=== PATIENT | female | born 1985 | race Caucasian/White ===

== ENCOUNTER 2016-06-10 05:35 | Emergency (ER) | payer OTHER ==
--- NOTE | 2016-06-10 10:29 | DIAGNOSTIC IMAGING REPORT ---
PROCEDURE: CT ABD/PELVIS WITH CONTRAST CLINICAL INDICATION: Perirectal pain, initial encounter TECHNIQUE: 100 ml of Isovue 300 were injected intravenously and axial images were obtained of the entire abdomen and pelvis with sagittal and coronal reformations. COMPARISON: None. FINDINGS: ABDOMEN: Lung base are clear. Heart size is normal. Liver, gallbladder, pancreas, spleen, adrenal glands and left kidney are normal. 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 Normal abdominal aorta. Nonspecific bowel gas pattern. PELVIS: There is some soft tissue fullness in the lower vagina which may be normal but there is no evidence of a perirectal abscess. 3.2 cm right ovarian cyst with small amount of free fluid the pelvis. Normal uterus and bladder. Bones are unremarkable pill IMPRESSION: 1. Soft tissue fullness in the lower vagina, probably normal. No evidence of a perirectal abscess 2. 3.2 cm right ovarian cyst with small amount of free fluid 3. Right renal hypoplasia/atrophy 4. Results discussed with Dr. Sesay. All CT scans at this facility use dose modulation, iterative reconstruction, and/or weight-based dosing when appropriate to reduce radiation dose to as low as reasonably achievable.
--- NOTE | 2016-06-10 12:51 | ED ORDER SUMMARY ---
..... Patient: BEST GONZALEZ OrderSheet [facility] VisitID: [id number] [place] [address] 30y, F Registration Date/Time: 06/10/2016 ORDER SHEET Weight: 50.8 kg (stated) Allergies: Bactrim GENERAL ORDERS: CT Abd/Pel w Cont (No) (pending) Urgent (08:32 06/10/2016 Irvin MARTINEZ) (Ack 8:39 OHledy) (9:47 OHernandez) CBC w Diff Urgent (08:42 06/10/2016 Irvin MARTINEZ) (Ack 8:44 OHernandez) (9:47 OHernandez) CMP Urgent (08:42 06/10/2016 Irvin MARTINEZ) (Ack 8:45 OHledy) (9:47 OHernandez) Urine Urgent (08:42 06/10/2016 Irvin MARTINEZ) (Ack 8:45 OHsagrarionandez) (9:47 OHernandez) - (SET UP FOR PELVIC EXAM) (12:00 06/10/2016 Swapnil MARTINEZ) (Ack 12:04 TBergley) (12:44 TBergley) -- (SECOND LITER OF NS SPORTS DRINK PLEASE) (12:43 06/10/2016 Swapnil MARTINEZ) (12:45 TBergley) Culture, Herpes (Anal) (SWAB) Urgent (13:38 06/10/2016 Swapnil MARTINEZ) MEDICATION ORDERS: Dilaudid IM 1 mg (NOW) (06:44 06/10/2016 Irvin MARTINEZ) (7:14 DBeyer R.N.) Ativan IM 1 mg (NOW) (06:45 06/10/2016 Irvin MARTINEZ) (7:14 DBeyer R.N.) Zofran ODT PO 4 mg (NOW) (06:45 06/10/2016 Irvin MARTINEZ) (7:15 DBeyer R.N.) Zovirax PO 800 mg (NOW) (12:44 06/10/2016 Swapnil MARTINEZ) (Cancelled: Duplicate Order12:47 Swapnil MARTINEZ) IV FLUIDS: IV NS : initial bolus 1000 mL (1000 mL/hr), then 500 mL/hr for X2 (NOW); Routine (08:32 06/10/2016 Irvin MARTINEZ) (8:55 Feliciano R.NJanie) Dilaudid IV 0.5 mg (NOW) (12:12 06/10/2016 Swapnil MARTINEZ) (12:21 Aubrey Taylor.NJanie) ORDER SHEET NOTES: [Electronically signed by Kristina Cruz R.N. (19:16 06/10/2016)] [Electronically signed by Rodrick Salcedo MD (12:40 06/12/2016)] [Electronically locked/signed by Kristina Cruz R.N. (19:16 06/10/2016)]
--- NOTE | 2016-06-10 12:51 | ED CLINICAL REPORT ---
Clinical Report - Physicians/Mid Levels [facility] [address] [place] [address] 06/10/2016 5:35 Patient: BEST MCCAULEY Time Seen: 06:34 Jun 10 2016. Arrived- By private vehicle. Historian- patient. HISTORY OF PRESENT ILLNESS Chief Complaint: SKIN RASH and (Rectal pain). This started 7 days ago; Ms Mccauley developed a progressively painful yaron-rectal rash. and is still present and worsening. It was gradual in onset. It is described as painful. It has been located in the perianal area. No cause has been identified. (Hurts to walk, urinate, and defecate. She can drink fluids.). Similar symptoms previously: None. Recent medical care: The patient was seen recently by a health care provider. ( Everyother day. Dr Hernandez/Jessica KELLY Yeast Rx Cream (Tues) Wed Worse No results Rx Cephalexin (Allergic and didn;t take) Vicodin, lidocaine. Valtrex was recently added to the treatment). REVIEW OF SYSTEMS No fever, chills, cough, difficulty breathing or chest pain. No abdominal pain. She has had nausea. She has had vomiting (today x 5 times, yesterday 5 times.). PAST HISTORY PCP: LETICIA Ops: None Illness: None. SOCIAL HISTORY Never smoker. ADDITIONAL NOTES The nursing notes have been reviewed. PHYSICAL EXAM Vital Signs: 06/10/2016 05:46 BP: 135/80. HR: 107. RR: 18. O2 saturation: 99%. Temp: 97.7 F. Appearance: Alert. Patient in mild distress. (Following medication). ENT: Pharynx normal. Respiratory: No respiratory distress. Breath sounds normal. Abdomen: Nontender. No organomegaly. Skin: (There is a wet, red, inflamed area surrounding the anus. The vulva is covered with Desitin. This is removed. No vesicles are seen.). LABS, X-RAYS, AND EKG Abdominal CT: PROCEDURE: CT ABD/PELVIS WITH CONTRAST CLINICAL INDICATION: Perirectal pain, initial encounter TECHNIQUE: 100 ml of Isovue 300 were injected intravenously and axial images were obtained of the entire abdomen and pelvis with sagittal and coronal reformations. COMPARISON: None. FINDINGS: ABDOMEN: Lung base are clear. Heart size is normal. Liver, gallbladder, pancreas, spleen, adrenal glands and left kidney are normal. 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 Normal abdominal aorta. Nonspecific bowel gas pattern. PELVIS: There is some soft tissue fullness in the lower vagina which may be normal but there is no evidence of a perirectal abscess. 3.2 cm right ovarian cyst with small amount of free fluid the pelvis. Normal uterus and bladder. Bones are unremarkable pill IMPRESSION: 1. Soft tissue fullness in the lower vagina, probably normal. No evidence of a perirectal abscess 2. 3.2 cm right ovarian cyst with small amount of free fluid 3. Right renal hypoplasia/atrophy 4. Results discussed with Dr. Sesay. Electronically Final signed by:Robin Negro MD 06/10/2016 10:28:45 AM. The study was interpreted by the radiologist. Laboratory Tests: Urine: (ANDERS: 06/10/2016 09:15) ( [facility] 06/10/2016 09:22) Final results Test Result Flag Units (Reference) URINE NEGATIVE CBC w Diff: (ANDERS: 06/10/2016 08:50) ( [facility] [place] 06/10/[place] 09:07) Final results Test Result Flag Units (Reference) WHITE BLOOD COUNT 7.1 K/uL (4.5-11.5) RED BLOOD COUNT 3.71 L M/uL (4.00-5.20) HEMOGLOBIN 11.4 L gm/dL (12.0-16.0) HEMATOCRIT 34.7 L % (36.0-46.0) MEAN CELL VOLUME 93 fL (80-100) MEAN CORPUSCULAR HGB 31 pg (26-34) MEAN CORPUSCULAR HGB CONC 33 g/dL (31-37) RED CELL DISTRIBUTION WIDTH 13.5 % (11.6-14.8) PLATELET COUNT 249 K/uL (150-400) NEUTROPHIL % 77.0 H % (50-75) LYMPH % 15.5 L % (25-40) MONO % 7.2 % (3-14) EOSINOPHIL % 0 % (0-4) BASOPHIL % 0.3 % (0-2) CMP: (ANDERS: 06/10/2016 08:50) ( [facility] 06/10/2016 09:26) Final results Test Result Flag Units (Reference) GLUCOSE 73 mg/dL (70-110) BUN 9 mg/dL (7-18) CREATININE 0.6 mg/dL (0.6-1.3) Estimated GFR >60 mL/min Estimated GFR- >60 mL/min Note: Persistent reduction over 3 months in eGFR<60 mL/min/1.73 m2 defines CKD. Patients with eGFR values>=60 mL/min/1.73 m2 may also have CKD if evidence ofpersistent proteinuria. Additional information may be foundat [email or web address].org. SODIUM 137 mmol/L (136-145) POTASSIUM 3.5 mmol/L (3.5-5.1) CHLORIDE 101 mmol/L (98-107) CARBON DIOXIDE 27 mmol/L (21-32) CALCIUM 8.2 L mg/dL (8.5-10.1) TOTAL PROTEIN 6.8 g/dL (6.4-8.2) ALBUMIN 3.4 g/dL (3.3-5.0) BILIRUBIN, TOTAL 0.4 mg/dL (0.0-1.0) ALKALINE PHOSPHATASE 76 U/L (46-116) AST (SGOT) 24 U/L (15-37) ALT (SGPT) 62 U/L (12-78) . PROGRESS AND PROCEDURES Course of Care: 11:08 06/10/16. Assmed care from Dr Sesay due to change of shift. He had ordered imaging and labs. Complete independent hx and PE done and documented by me./R Matias MARTINEZ 12:46 06/10/16. Pelvic - external only. CW genital herpes. Valtrex is appropriate treatment. 06/10/2016 13:21 BP: 101/50. HR: 91. RR: 18. O2 saturation: 99%. Temp: 98.2 F. 06/10/2016 12:30 BP: 101/50. HR: 80. RR: 18. O2 saturation: 98%. Pain level now: 08/11. 06/10/2016 11:30 BP: 110/56. HR: 90. RR: 18. O2 saturation: 99%. 06/10/2016 07:43 BP: 124/71. HR: 75. RR: 18. O2 saturation: 99%. 06/10/2016 05:46 BP: 135/80. HR: 107. RR: 18. O2 saturation: 99%. Temp: 97.7 F. Disposition: Discharged. CLINICAL IMPRESSION Herpes genitalis involving the vulva and perianal area. INSTRUCTIONS Do not work for seven days until better. (LOTS OF FLUIDS THIS LOOKS LIKE GENITAL HERPES CONTINUE VALTREX SEE YOU SUN OR SUNDAY IMMEDIATE RECHECK IF YOU CANNOT KEEP LIQUIDS.). Prescription Medications: Zofran 4 mg: Take 1 orally every six hours as needed for nausea/vomiting. Dispense ten (10). No refills. Substitution is permissible. Oxycodone/APAP 5 mg/325 mg: take 1-2 tablets orally every 4 hours. Dispense twenty (20). No refill. Follow-up: Follow up with your doctor in two days. Understanding of the discharge instructions verbalized. (Electronically signed by Rodrick Salcedo MD 06/12/2016 12:40)
--- NOTE | 2016-06-10 12:51 | ED ORDER SUMMARY ---
..... Patient: BEST GONZALEZ OrderSheet [facility] VisitID: [id number] [place] [address] 30y, F Registration Date/Time: 06/10/2016 ORDER SHEET Weight: 50.8 kg (stated) Allergies: Bactrim GENERAL ORDERS: CT Abd/Pel w Cont (No) (pending) Urgent (08:32 06/10/2016 Irvin MARTINEZ) (Ack 8:39 OHledy) (9:47 OHernandez) CBC w Diff Urgent (08:42 06/10/2016 Irvin MARTINEZ) (Ack 8:44 OHernandez) (9:47 OHernandez) CMP Urgent (08:42 06/10/2016 Irvin MARTINEZ) (Ack 8:45 OHledy) (9:47 OHernandez) Urine Urgent (08:42 06/10/2016 Irvin MARTINEZ) (Ack 8:45 OHsagrarionandez) (9:47 OHernandez) - (SET UP FOR PELVIC EXAM) (12:00 06/10/2016 Swapnil MARTINEZ) (Ack 12:04 TBergley) (12:44 TBergley) -- (SECOND LITER OF NS SPORTS DRINK PLEASE) (12:43 06/10/2016 Swapnil MARTINEZ) (12:45 TBergley) Culture, Herpes (Anal) (SWAB) Urgent (13:38 06/10/2016 Swapnil MARTINEZ) MEDICATION ORDERS: Dilaudid IM 1 mg (NOW) (06:44 06/10/2016 Irvin MARTINEZ) (7:14 DBeyer R.N.) Ativan IM 1 mg (NOW) (06:45 06/10/2016 Irvin MARTINEZ) (7:14 DBeyer R.N.) Zofran ODT PO 4 mg (NOW) (06:45 06/10/2016 Irvin MARTINEZ) (7:15 DBeyer R.N.) Zovirax PO 800 mg (NOW) (12:44 06/10/2016 Swapnil MARTINEZ) (Cancelled: Duplicate Order12:47 Swapnil MARTINEZ) IV FLUIDS: IV NS : initial bolus 1000 mL (1000 mL/hr), then 500 mL/hr for X2 (NOW); Routine (08:32 06/10/2016 Irvin MARTINEZ) (8:55 Feliciano R.NJanie) Dilaudid IV 0.5 mg (NOW) (12:12 06/10/2016 Swapnil MARTINEZ) (12:21 Aubrey Taylor.NJanie) ORDER SHEET NOTES: [Electronically signed by Kristina Cruz R.N. (19:16 06/10/2016)] [Electronically signed by Rodrick Salcedo MD (12:40 06/12/2016)] [Electronically locked/signed by Kristina Cruz R.N. (19:16 06/10/2016)]
--- NOTE | 2016-06-10 12:51 | ED NURSING NOTES ---
Clinical Report - Nurses [facility] [address] [place] [address] 06/10/2016 5:35 Patient: BEST GONZALEZ TRIAGE Triage time 05:46 Jun 10 2016. Acuity: LEVEL 3. Chief Complaint: SKIN RASH. --05:51 Srikanth Pennington R.N. 05:46 06/10/16. BP: 135/80. HR: 107. RR: 18. O2 saturation: 99%. Temp: 97.7 F. Pain level now 03/13. --05:51 Srikanth Pennington R.N. Weight: 50.8 kg stated. Height/Length: 63 inches Per Patient. BMI: 19.8. --05:50 Srikanth Pennington R.N. Medications Thyroid Oral. --05:49 Srikanth Pennington R.N. Allergies Bactrim. --05:49 Srikanth Pennington R.N. History Arrived by private vehicle. Historian: patient. ( pt reports rash on butt for one week took abx and cream did not help takng keflex, hydrocodone and lidocaine valtrex). Onset. (1 weeks). SOCIAL HX: Never smoker. No alcohol use or drug use. --05:51 Srikanth Pennington R.N. PROBLEMS: Vulvovaginitis. Immunizations. . --05:50 Srikanth Pennington R.N. Interventions ID and allergy band on patient. To treatment room. --05:51 Srikanth Pennington R.N. PHYSICAL ASSESSMENT GENERAL / NEURO / PSYCH: Alert. The patient does not appear to be in acute distress. Oriented X 4. HEENT: Pupils equal, round and reactive to light. Mucous membranes are pink. RESPIRATORY: Respirations not labored. CVS: Pulses within normal limits. SKIN: Skin is warm and dry. --05:51 Srikanth Pennington R.N. NURSING PROGRESS NOTES Patient gowned. Two patient identifiers checked. Side rails up x 1. --05:51 Srikanth Pennington R.N. 06:40 assisted with rectal exam. --07:06 Ingrid Apple R.N. 07:04 06/10/2016 Dilaudid (HYDROmorphone HCl PF) IM 1 mg given. Given in the left deltoid. Allergies verified, confirmed 5 rights and sedative warning given. --07:14 Srikanth Pennington R.N. 07:04 06/10/2016 Ativan (LORazepam) IM 1 mg given. Given in the right deltoid. Allergies verified, confirmed 5 rights and sedative warning given to the patient. --07:14 Srikanth Pennington R.N. 07:15 06/10/2016 Zofran ODT (Ondansetron) PO 4 mg given. Allergies verified and confirmed 5 rights. --07:15 Srikanth Pennington R.N. ( Pt had noticeable decrease in anxiety after medical scheduler report to jeferson). --07:16 Srikanth Pennington R.N. ( Cleaned area with tucks and warm water. Removed as much desitin as possible. Warm blanket given.). --07:45 Jeferson Cruz R.N. 07:43 06/10/16. BP: 124/71. HR: 75. RR: 18. O2 saturation: 99%. Pain level now 5/10. --07:45 Jeferson Cruz R.N. 08:55 06/10/2016 Site #1 started via IV in the right antecubital space with an 20g angiocath, with aseptic technique and good blood return; one attempt. Blood drawn: rainbow set. Labeled in the presence of the patient and sent to the lab. Saline lock flushed with 10 mL saline. --08:55 Jeferson Cruz R.N. 08:55 06/10/2016 Started bag #1 1000 mL IV Fluids IV NS (Saline); at 1000 mL/hr over 1 hour(s) via site #1 via dial-a-flow. Allergies verified and confirmed 5 rights. IV patency established. IV site checked: no pain, redness, or swelling. IV flushed thoroughly pre- and post-medication administration. --08:55 Jeferson Cruz R.N. 12:19 06/10/2016 Dilaudid (HYDROmorphone HCl PF) IVP 0.5 mg given over 1 minute(s) via site #1. Allergies verified, confirmed 5 rights and sedative warning given to the patient. IV patency established. IV site checked: no pain, redness, or swelling. IV flushed thoroughly pre- and post-medication administration. IVP given by RN. --12:21 Girish Wong R.N. 12:30 06/10/16. ( Pelvic exam completed and herpes swab sent to lab.). --13:19 Jeferson Cruz R.N. 13:21 06/10/16. BP: 101/50. HR: 91. RR: 18. O2 saturation: 99%. Temp: 98.2 F. Pain level now 08/11. --13:22 Jeferson Cruz R.N. 13:24 06/10/2016 Site #1 removed upon discharge. Catheter intact. Pressure dressing applied. --13:24 Jeferson Cruz R.N. 13:24 06/10/2016 IV Fluids IV NS Discontinued: bag #2 infused upon discharge. Total amount infused: 1000 mL. IV patency established. IV site checked: no pain, redness, or swelling. IV flushed thoroughly. --13:24 Jeferson Cruz R.N. DISPOSITION / DISCHARGE Departure time: 13:Jun 10 2016. Condition at departure: improved. No learning barriers present. Discharge instructions provided and reviewed with the patient and family. Reviewed warnings. Reviewed medication(s). Treatments reviewed. Reviewed referrals. Work note given. Patient and family verbalized understanding. Written instructions provided in [place] Island[place]. The patient was discharged home and accompanied by family. She left the Emergency Department ambulatory and via private vehicle. Family member driving. --13:25 Jeferson Cruz R.N. 13:21 06/10/16. BP: 101/50. HR: 91. RR: 18. O2 saturation: 99%. Temp: 98.2 F. Pain level now 10. --13:25 Jeferson Cruz R.N. Locked/Released at 06/10/2016 19:16 by Jeferson Cruz R.N.
--- NOTE | 2016-06-10 12:51 | ED NURSING NOTES ---
Clinical Report - Nurses [facility] [address] [place] [address] 06/10/2016 5:35 Patient: BEST GONZALEZ TRIAGE Triage time 05:46 Jun 10 2016. Acuity: LEVEL 3. Chief Complaint: SKIN RASH. --05:51 Srikanth Pennington R.N. 05:46 06/10/16. BP: 135/80. HR: 107. RR: 18. O2 saturation: 99%. Temp: 97.7 F. Pain level now 03/13. --05:51 Srikanth Pennington R.N. Weight: 50.8 kg stated. Height/Length: 63 inches Per Patient. BMI: 19.8. --05:50 Srikanth Pennington R.N. Medications Thyroid Oral. --05:49 Srikanth Pennington R.N. Allergies Bactrim. --05:49 Srikanth Pennington R.N. History Arrived by private vehicle. Historian: patient. ( pt reports rash on butt for one week took abx and cream did not help takng keflex, hydrocodone and lidocaine valtrex). Onset. (1 weeks). SOCIAL HX: Never smoker. No alcohol use or drug use. --05:51 Srikanth Pennington R.N. PROBLEMS: Vulvovaginitis. Immunizations. . --05:50 Srikanth Pennington R.N. Interventions ID and allergy band on patient. To treatment room. --05:51 Srikanth Pennington R.N. PHYSICAL ASSESSMENT GENERAL / NEURO / PSYCH: Alert. The patient does not appear to be in acute distress. Oriented X 4. HEENT: Pupils equal, round and reactive to light. Mucous membranes are pink. RESPIRATORY: Respirations not labored. CVS: Pulses within normal limits. SKIN: Skin is warm and dry. --05:51 Srikanth Pennington R.N. NURSING PROGRESS NOTES Patient gowned. Two patient identifiers checked. Side rails up x 1. --05:51 Srikanth Pennington R.N. 06:40 assisted with rectal exam. --07:06 Ingrid Apple R.N. 07:04 06/10/2016 Dilaudid (HYDROmorphone HCl PF) IM 1 mg given. Given in the left deltoid. Allergies verified, confirmed 5 rights and sedative warning given. --07:14 Srikanth Pennington R.N. 07:04 06/10/2016 Ativan (LORazepam) IM 1 mg given. Given in the right deltoid. Allergies verified, confirmed 5 rights and sedative warning given to the patient. --07:14 Srikanth Pennington R.N. 07:15 06/10/2016 Zofran ODT (Ondansetron) PO 4 mg given. Allergies verified and confirmed 5 rights. --07:15 Srikanth Pennington R.N. ( Pt had noticeable decrease in anxiety after medication coordinator report to jeferson). --07:16 Srikanth Pennington R.N. ( Cleaned area with tucks and warm water. Removed as much desitin as possible. Warm blanket given.). --07:45 Jeferson Cruz R.N. 07:43 06/10/16. BP: 124/71. HR: 75. RR: 18. O2 saturation: 99%. Pain level now 5/10. --07:45 Jeferson Cruz R.N. 08:55 06/10/2016 Site #1 started via IV in the right antecubital space with an 20g angiocath, with aseptic technique and good blood return; one attempt. Blood drawn: rainbow set. Labeled in the presence of the patient and sent to the lab. Saline lock flushed with 10 mL saline. --08:55 Jeferson Crzu R.N. 08:55 06/10/2016 Started bag #1 1000 mL IV Fluids IV NS (Saline); at 1000 mL/hr over 1 hour(s) via site #1 via dial-a-flow. Allergies verified and confirmed 5 rights. IV patency established. IV site checked: no pain, redness, or swelling. IV flushed thoroughly pre- and post-medication administration. --08:55 Jeferson Cruz R.N. 12:19 06/10/2016 Dilaudid (HYDROmorphone HCl PF) IVP 0.5 mg given over 1 minute(s) via site #1. Allergies verified, confirmed 5 rights and sedative warning given to the patient. IV patency established. IV site checked: no pain, redness, or swelling. IV flushed thoroughly pre- and post-medication administration. IVP given by RN. --12:21 Girish Wong R.N. 12:30 06/10/16. ( Pelvic exam completed and herpes swab sent to lab.). --13:19 Jeferson Cruz R.N. 13:21 06/10/16. BP: 101/50. HR: 91. RR: 18. O2 saturation: 99%. Temp: 98.2 F. Pain level now 08/11. --13:22 Jeferson Cruz R.N. 13:24 06/10/2016 Site #1 removed upon discharge. Catheter intact. Pressure dressing applied. --13:24 Jeferson Cruz R.N. 13:24 06/10/2016 IV Fluids IV NS Discontinued: bag #2 infused upon discharge. Total amount infused: 1000 mL. IV patency established. IV site checked: no pain, redness, or swelling. IV flushed thoroughly. --13:24 Jeferson Cruz R.N. DISPOSITION / DISCHARGE Departure time: 13:Jun 10 2016. Condition at departure: improved. No learning barriers present. Discharge instructions provided and reviewed with the patient and family. Reviewed warnings. Reviewed medication(s). Treatments reviewed. Reviewed referrals. Work note given. Patient and family verbalized understanding. Written instructions provided in [place]. The patient was discharged home and accompanied by family. She left the Emergency Department ambulatory and via private vehicle. Family member driving. --13:25 Jeferson Cruz R.N. 13:21 06/10/16. BP: 101/50. HR: 91. RR: 18. O2 saturation: 99%. Temp: 98.2 F. Pain level now 10. --13:25 Jeferson Cruz R.N. Locked/Released at 06/10/2016 19:16 by Jeferson Cruz R.N.
--- NOTE | 2016-06-12 12:40 | ED MED RECONCILIATION SUMMARY ---
Patient: BEST GONZALEZ Medication Reconciliation Report [facility] VisitID: [id number] [address] [place] [address] 30y, F Registration Date/Time: 06/10/2016 Weight: 50.8 kg Height/Length: 63 in. BMI: 19.8 ALLERGIES: Bactrim The patient's Home Medications are listed below: THE FOLLOWING MEDICATIONS NEED TO BE RECONCILED: Thyroid Oral The source(s) of the original Home Medication information: Not obtained. The following Medications were given to the patient in the Emergency Department: Dilaudid [IM] IM 1 mg, administered: 06/10/2016 7:04:00 AM Ativan [IM] IM 1 mg, administered: 06/10/2016 7:04:00 AM Zofran ODT [PO] PO 4 mg, administered: 06/10/2016 7:15:00 AM IV NS IV Fluids bolus 0, then 1000 mL/hr, administered: 06/10/2016 8:55:00 AM Dilaudid [IVP] IVP 0.5 mg, administered: 06/10/2016 12:19:00 PM The following Medications were prescribed to the patient: Zofran 4 mg: Take 1 orally every six hours as needed for nausea/vomiting. Dispense ten (10). No refills. Substitution is permissible. -- Rodrick Salcedo MD Oxycodone/APAP 5 mg/325 mg: take 1-2 tablets orally every 4 hours. Dispense twenty (20). No refill. -- Rodrick Salcedo MD
--- NOTE | 2016-06-12 12:40 | ED DISCHARGE INSTRUCTIONS ---
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 INSTRUCTIONS Do not work for seven days until better. (LOTS OF FLUIDS THIS LOOKS LIKE GENITAL HERPES CONTINUE VALTREX SEE YOU SUN OR SUNDAY IMMEDIATE RECHECK IF YOU CANNOT KEEP LIQUIDS.). Prescription Medications: Zofran 4 mg: Take 1 orally every six hours as needed for nausea/vomiting. Dispense ten (10). No refills. Substitution is permissible. Oxycodone/APAP 5 mg/325 mg: take 1-2 tablets orally every 4 hours. Dispense twenty (20). No refill. Follow-up: Follow up with your doctor in two days. Understanding of the discharge instructions verbalized. ADDITIONAL INFORMATION Genital Herpes Genital herpes is a common sexually transmitted disease (STD). It is caused by the Herpes Simplex virus. One out of five (20%) teens and adults carry the herpes virus. During an outbreak, it causes small blisters that break open, leaving small painful ulcers (sores) in the genital area. Eventually, scabs form and the ulcers heal. In women, these are most often on the skin just outside the vaginal opening. They can occur on the buttocks, anus or cervix. In men, the sores are usually on the tip, sides or base of the penis. They also occur on the scrotum, buttocks or thighs. The first episode begins within 2-3 weeks after exposure to an infected sexual partner. It may last 1-3 weeks and cause headache, muscle ache and fevers. The first outbreak is usually the worst. Because the virus remains in the body even after the sores heal, most persons will have recurrences. The frequency of recurrent outbreaks varies with each person. Some people will never have another outbreak. Others will have several episodes a year. Later outbreaks are usually shorter, milder and less painful. For many, the number of outbreaks tends to decrease over time. Various factors may trigger a recurrence. These include: Emotional stress Menstruation Presence of another illness (cold, flu, or fever from any cause) Overexertion and fatigue Weakened immune system Home Care: It is very important that you do not have sexual relations until ALL the herpes sores have healed completely. Wash the affected area gently with mild soap and water. Wash your hands after touching the affected area. You may use acetaminophen (Tylenol) or ibuprofen (Motrin, Advil) to control pain, unless another pain medicine was prescribed. [NOTE: If you have chronic liver or kidney disease or ever had a stomach ulcer or GI bleeding, talk with your doctor before using these medicines.] Your doctor may prescribe anti-viral medicine during the first outbreak. This will help the sores heal faster. Antiviral medicine may also be prescribed to have at home to take at the first sign of a recurrence. This will shorten the symptoms of a recurrence. For persons with frequent outbreaks, daily therapy may be prescribed. This will reduce the frequency of attacks. Daily therapy may also reduce risk of spread of herpes to your sexual partner. Discuss the risks and benefits of daily therapy with your doctor. If you are a woman who is now or become in the future, let your doctor know that you have had herpes since this may affect the method of delivery. Preventing Spread To Others: The virus is spread by sexual contact with someone who has the herpes virus. The risk of spread is highest when the sores are present. However, there is a chance of spreading the virus even when sores are not visible . Inform future sexual partners that you have herpes and that he/she may become infected. To reduce the risk of passing the virus to a partner who has never had herpes, avoid sexual relations at the first sign of an outbreak and until the ulcers are fully healed. Latex condoms reduce the risk of spread between outbreaks if the infected site is covered, but they do not guarantee protection. Follow-Up: Persons who have just learned that they have herpes may feel guilt, anger, and be emotionally upset. Getting the facts helps put you back in control. Follow up with your doctor or the Public Health Dept for complete STD screening, including HIV testing. For more information about Herpes, see the "National Herpes Resource Center" http://www.ashastd.org/herpes/herpes_overview.cfm ; or call the National STD Hotline: 264.987.9541. Get Prompt Medical Attention if any of the following occur: Inability to urinate due to pain Swelling or increasing redness in the genital area Unusual drowsiness, weakness or confusion Headache, stiff neck Discharge from the vagina or penis Increasing back or abdominal pain Rash or joint pain Oxycodone Hydrochloride, Acetaminophen Oral tablet What is this medicine? ACETAMINOPHEN; OXYCODONE (a set a TEETEE felix fen; ox i KOE done) is a pain reliever. It is used to treat mild to moderate pain. How should I use this medicine? Take this medicine by mouth with a full glass of water. Follow the directions on the prescription label. Take your medicine at regular intervals. Do not take your medicine more often than directed. Talk to your hot plate plywood press offbearer regarding the use of this medicine in children. Special care may be needed. Patients over 65 years old may have a stronger reaction and need a smaller dose. What side effects may I notice from receiving this medicine? Side effects that you should report to your doctor or health customer care team coach as soon as possible: allergic reactions like skin rash, itching or hives, swelling of the face, lips, or tongue breathing difficulties, wheezing confusion light headedness or fainting spells severe stomach pain yellowing of the skin or the whites of the eyes Side effects that usually do not require medical attention (report to your doctor or health customer care team coach if they continue or are bothersome): dizziness drowsiness nausea vomiting What may interact with this medicine? alcohol antihistamines barbiturates like amobarbital, butalbital, butabarbital, methohexital, pentobarbital, phenobarbital, thiopental, and secobarbital benztropine drugs for bladder problems like solifenacin, trospium, oxybutynin, tolterodine, hyoscyamine, and methscopolamine drugs for breathing problems like ipratropium and tiotropium drugs for certain stomach or intestine problems like propantheline, homatropine methylbromide, glycopyrrolate, atropine, belladonna, and dicyclomine general anesthetics like etomidate, ketamine, nitrous oxide, propofol, desflurane, enflurane, halothane, isoflurane, and sevoflurane medicines for depression, anxiety, or psychotic disturbances medicines for sleep muscle relaxants naltrexone narcotic medicines (opiates) for pain phenothiazines like perphenazine, thioridazine, chlorpromazine, mesoridazine, fluphenazine, prochlorperazine, promazine, and trifluoperazine scopolamine tramadol trihexyphenidyl What if I miss a dose? If you miss a dose, take it as soon as you can. If it is almost time for your next dose, take only that dose. Do not take double or extra doses. Where should I keep my medicine? Keep out of the reach of children. This medicine can be abused. Keep your medicine in a safe place to protect it from theft. Do not share this medicine with anyone. Selling or giving away this medicine is dangerous and against the law. Store at room temperature between 20 and 25 degrees C (68 and 77 degrees F). Keep container tightly closed. Protect from light. This medicine may cause accidental overdose and if it is taken by other adults, children, or pets. Flush any unused medicine down the toilet to reduce the chance of harm. Do not use the medicine after the expiration date. What should I tell my health care provider before I take this medicine? They need to know if you have any of these conditions: brain tumor Crohn's disease, inflammatory bowel disease, or ulcerative colitis drink more than 3 alcohol containing drinks per day drug abuse or addiction head injury heart or circulation problems kidney disease or problems going to the bathroom liver disease lung disease, asthma, or breathing problems an unusual or allergic reaction to acetaminophen, oxycodone, other opioid analgesics, other medicines, foods, dyes, or preservatives or trying to get breast-feeding What should I watch for while using this medicine? Tell your doctor or health customer care team coach if your pain does not go away, if it gets worse, or if you have new or a different type of pain. You may develop tolerance to the medicine. Tolerance means that you will need a higher dose of the medication for pain relief. Tolerance is normal and is expected if you take this medicine for a long time. Do not suddenly stop taking your medicine because you may develop a severe reaction. Your body becomes used to the medicine. This does NOT mean you are addicted. Addiction is a behavior related to getting and using a drug for a non-medical reason. If you have pain, you have a medical reason to take pain medicine. Your doctor will tell you how much medicine to take. If your doctor wants you to stop the medicine, the dose will be slowly lowered over time to avoid any side effects. You may get drowsy or dizzy. Do not drive, use machinery, or do anything that needs mental alertness until you know how this medicine affects you. Do not stand or sit up quickly, especially if you are an older patient. This reduces the risk of dizzy or fainting spells. Alcohol may interfere with the effect of this medicine. Avoid alcoholic drinks. There are different types of narcotic medicines (opiates) for pain. If you take more than one type at the same time, you may have more side effects. Give your health care provider a list of all medicines you use. Your doctor will tell you how much medicine to take. Do not take more medicine than directed. Call emergency for help if you have problems breathing. The medicine will cause constipation. Try to have a bowel movement at least every 2 to 3 days. If you do not have a bowel movement for 3 days, call your doctor or health customer care team coach. Do not take Tylenol (acetaminophen) or medicines that have acetaminophen with this medicine. Too much acetaminophen can be very dangerous. Many nonprescription medicines contain acetaminophen. Always read the labels carefully to avoid taking more acetaminophen. You have been given the following additional information: Herpes Genitalis, Hsv: Type Ii Oxycodone Hydrochloride, Acetaminophen Oral tablet Do not work for seven days until better. (Electronically signed by Rodrick Salcedo MD 06/12/2016 12:40)
--- NOTE | 2016-06-12 12:40 | ED MAR SUMMARY ---
..... Medication Administration Record [facility] [address] [place] [address] Patient: BEST GONZALEZ Visit ID: [id number] 30y, F Weight: 50.8 kg Height/Length: 63 in BMI: 19.8 ALLERGIES: Bactrim Given 07:04 06/10/2016 Srikanth Pennington R.N. Medication Administered: DILAUDID [IM] (HYDROMORPHONE HCL PF), Dose: 1 mg IM. Medication Ordered: Dilaudid IM 1 mg (NOW). Given 07:04 06/10/2016 Srikanth Pennington R.N. Medication Administered: ATIVAN [IM] (LORAZEPAM), Dose: 1 mg IM. Medication Ordered: Ativan IM 1 mg (NOW). Given 07:15 06/10/2016 Srikanth Pennington R.N. Medication Administered: ZOFRAN ODT [PO] (ONDANSETRON), Dose: 4 mg PO. Medication Ordered: Zofran ODT PO 4 mg (NOW). Start 08:55 06/10/2016 Kristina Cruz RBranden, Stop 13:24 06/10/2016 Kristina Cruz R.N. Medication Administered: IV NS (SALINE), Dose: IV Fluids over 1 hour(s), Rate: 1000 mL/hr, Dispensed: 1000 mL bag, Site: #1 right AC. Medication Ordered: IV NS : initial bolus 1000 mL (1000 mL/hr), then 500 mL/hr for X2 (NOW); Routine. Given 12:19 06/10/2016 Girish Wong R.N. Medication Administered: DILAUDID [IVP] (HYDROMORPHONE HCL PF), Dose: 0.5 mg IVP over 1 minute(s), Site: #1 right AC. Medication Ordered: Dilaudid IV 0.5 mg (NOW).
--- NOTE | 2016-06-12 12:40 | ED MAR SUMMARY ---
..... Medication Administration Record [facility] [address] [place] [address] Patient: BEST GONZALEZ Visit ID: [id number] 30y, F Weight: 50.8 kg Height/Length: 63 in BMI: 19.8 ALLERGIES: Bactrim Given 07:04 06/10/2016 Srikanth Pennington R.N. Medication Administered: DILAUDID [IM] (HYDROMORPHONE HCL PF), Dose: 1 mg IM. Medication Ordered: Dilaudid IM 1 mg (NOW). Given 07:04 06/10/2016 Srikanth Pennington R.N. Medication Administered: ATIVAN [IM] (LORAZEPAM), Dose: 1 mg IM. Medication Ordered: Ativan IM 1 mg (NOW). Given 07:15 06/10/2016 Srikanth Pennington R.N. Medication Administered: ZOFRAN ODT [PO] (ONDANSETRON), Dose: 4 mg PO. Medication Ordered: Zofran ODT PO 4 mg (NOW). Start 08:55 06/10/2016 Kristina Cruz RBranden, Stop 13:24 06/10/2016 Kristina Cruz R.N. Medication Administered: IV NS (SALINE), Dose: IV Fluids over 1 hour(s), Rate: 1000 mL/hr, Dispensed: 1000 mL bag, Site: #1 right AC. Medication Ordered: IV NS : initial bolus 1000 mL (1000 mL/hr), then 500 mL/hr for X2 (NOW); Routine. Given 12:19 06/10/2016 Girish Wong R.N. Medication Administered: DILAUDID [IVP] (HYDROMORPHONE HCL PF), Dose: 0.5 mg IVP over 1 minute(s), Site: #1 right AC. Medication Ordered: Dilaudid IV 0.5 mg (NOW).
--- NOTE | 2016-06-12 12:40 | ED MED RECONCILIATION SUMMARY ---
Patient: BEST GONZALEZ Medication Reconciliation Report [facility] VisitID: [id number] [address] [place] [address] 30y, F Registration Date/Time: 06/10/2016 Weight: 50.8 kg Height/Length: 63 in. BMI: 19.8 ALLERGIES: Bactrim The patient's Home Medications are listed below: THE FOLLOWING MEDICATIONS NEED TO BE RECONCILED: Thyroid Oral The source(s) of the original Home Medication information: Not obtained. The following Medications were given to the patient in the Emergency Department: Dilaudid [IM] IM 1 mg, administered: 06/10/2016 7:04:00 AM Ativan [IM] IM 1 mg, administered: 06/10/2016 7:04:00 AM Zofran ODT [PO] PO 4 mg, administered: 06/10/2016 7:15:00 AM IV NS IV Fluids bolus 0, then 1000 mL/hr, administered: 06/10/2016 8:55:00 AM Dilaudid [IVP] IVP 0.5 mg, administered: 06/10/2016 12:19:00 PM The following Medications were prescribed to the patient: Zofran 4 mg: Take 1 orally every six hours as needed for nausea/vomiting. Dispense ten (10). No refills. Substitution is permissible. -- Rodrick Salcedo MD Oxycodone/APAP 5 mg/325 mg: take 1-2 tablets orally every 4 hours. Dispense twenty (20). No refill. -- Rodrick Salcedo MD
== END 2016-06-10 13:30 | disposition home or self-care (01) ==
LOC: ED SRH 05:35
DX: A60.04 Herpesviral vulvovaginitis (principal); A60.1 Herpesviral infection of perianal skin and rectum; Z88.1 Allergy status to other antibiotic agents
CPT/HCPCS: 90100; 93070; 95059; 99105